=== PATIENT | female | born 1935 | race Two or more races ===

== ENCOUNTER 2017-04-29 04:01 | Emergency (ER) | payer MEDICARE, OTHER ==
[2017-04-29] MEDS ORDERED: METOPROLOL TARTRATE PF/INJ 5 MG/5 ML SDV IV ONE ×2 (04:25→05:59)
--- NOTE | 2017-04-29 04:29 | ER Document Report ---
ED General - General Chief Complaint: HYPERTENSION Stated Complaint: BLOOD PRESSURE PROBLEMS Time Seen by Provider: 04/29/17 04:14 Notes: Patient is an 81-year-old female comes emergency department for chief complaint of a burning discomfort in her right buttock area that started tonight after she went to bed and kept her from going to sleep, she complained about this and then family members checked her blood pressure and found it was elevated, subsequently they brought her to the emergency department. She has been out of her metoprolol tartrate 25 mg twice a day for the past 2 days because nothing came in the mail yet, she is visiting family from [place] and is planning to stay. She also recently had her Synthroid increased back home. Patient denies any dizziness, chest pain, shortness of breath, abdominal pain, numbness , fever, nausea or vomiting. She also takes carbamazepine for trigeminal neuralgia. TRAVEL OUTSIDE OF THE [place] IN LAST 30 DAYS: No Past Medical History - General Information source: Patient, Relative - Social History Smoking Status: Never Smoker Frequency of alcohol use: None Drug Abuse: None Lives with: Family Family History: Reviewed & Not Pertinent Patient has suicidal ideation: No Patient has homicidal ideation: No - Past Medical History Cardiac Medical History: Reports: Hx Hypertension Endocrine Medical History: Reports: Hx Hypothyroidism Renal/ Medical History: Denies: Hx Peritoneal Dialysis - Immunizations Immunizations up to date: Yes Hx Diphtheria, Pertussis, Tetanus Vaccination: Yes Review of Systems - Review of Systems Constitutional: No symptoms reported EENT: No symptoms reported Cardiovascular: See HPI Respiratory: No symptoms reported Gastrointestinal: No symptoms reported Genitourinary: No symptoms reported Female Genitourinary: No symptoms reported Musculoskeletal: See HPI Skin: No symptoms reported Hematologic/Lymphatic: No symptoms reported Neurological/Psychological: No symptoms reported Physical Exam - Vital signs Vitals: Resp Pulse Ox 21 H 99 04/29/17 04:27 04/29/17 04:27 Interpretation: Normal - General General appearance: Alert, Anxious In distress: None - HEENT Head: Normocephalic, Atraumatic Eyes: Normal Pupils: PERRL - Respiratory Respiratory status: No respiratory distress Chest status: Nontender Breath sounds: Normal Chest palpation: Normal - Cardiovascular Rhythm: Regular, Tachycardia. No: Irregularly irregular Heart sounds: Normal auscultation, S1 appreciated, S2 appreciated Murmur: No - Abdominal Inspection: Normal Distension: No distension Bowel sounds: Normal Tenderness: Nontender. No: Tender Organomegaly: No organomegaly - Back Back: Tender - There is minimal tenderness noted over the right gluteal musculature, normal back exam otherwise, no saddle anesthesia, moves all extremities and full range of motion, normal distal neurovascular exam - Extremities General upper extremity: Normal inspection, Nontender, Normal color, Normal ROM , Normal temperature General lower extremity: Normal inspection, Nontender, Normal color, Normal ROM , Normal temperature, Normal weight bearing. No: Jennifer's sign - Neurological Neuro grossly intact: Yes Cognition: Normal Orientation: AAOx4 Eduardo Coma Scale Eye Opening: Spontaneous Mcgregor Coma Scale Verbal: Oriented Eduardo Coma Scale Motor: Obeys Commands Mcgregor Coma Scale Total: 15 Speech: Normal Motor strength normal: LUE, RUE, LLE, RLE Sensory: Normal - Psychological Associated symptoms: Normal affect, Normal mood - Skin Skin Temperature: Warm Skin Moisture: Dry Skin Color: Normal Course - Re-evaluation Re-evalutation: EKG questionable for artifact, appears to be sinus tachycardia on the monitor, questionable on the EKG. CBC, chemistry, urinalysis unremarkable. Troponin is indeterminate at 0.047, patient has denied any chest pain, shortness of breath, dizziness, suspect because of her age and elevated heart rate and this is somewhat elevated. Patient with mild tenderness of the right gluteal musculature, after this was specifically noted patient and family requested no further attention be paid to this, they state patient has been sleeping on a blood mattress, they will accommodate her better, focus will be on her blood pressure medication and heart rate. Patient is anxious in appearance, family members confirm that she always gets very anxious when she is being evaluated in a medical setting. Patient was given 0.5 mg of Ativan because of this along with beginning her beta blockade again. Initially given very small dose 2.5 mg IV, confirmed with Dr. Hernández, then given her small home dose and finally an additional 5 mg IV of metoprolol. After all treatments heart rate normalized, blood pressure improved, patient calm and relaxed. Heart rate is no sinus rhythm in the 80s. Patient and family requesting to leave. Discussed with Dr. Hernández. Providing with temporary refill of her medication, primary care follow-up, discussed return precautions in detail, patient and family state understanding and agreement. - Vital Signs Vital signs: Temp Pulse Resp BP Pulse Ox 7 L 155/88 H 97 04/29/17 06:46 04/29/17 06:46 04/29/17 06:46 - Laboratory Result Diagrams: 04/29/17 04:34 04/29/17 04:34 Laboratory results interpreted by me: 04/29/17 04/29/17 04/29/17 04:34 04:34 04:34 MCH 33.8 H Est GFR (Non-Af Amer) 58 L Glucose 122 H TSH 7.52 H Free T3 pg/mL 2.42 L Urine Blood 04/29/17 05:30 MCH Est GFR (Non-Af Amer) Glucose TSH Free T3 pg/mL Urine Blood MODERATE H Discharge - Discharge Clinical Impression: Rapid heart rate Condition: Stable Disposition: HOME, SELF-CARE Additional Instructions: Please fill and take her prescribed metoprolol. Follow-up closely with the primary care referral given for additional management. Return to the emergency department for any concerning symptoms including chest pain, dizziness, difficulty breathing, or any other concerning symptoms. Prescriptions: Metoprolol Tartrate 25 mg PO BID #60 tablet Forms: Treatment of Relative/Child Referrals: ISAÍAS MEDLEY MD [ACTIVE STAFF] - 05/02/17 CHEKO GONZÁLES MD [ACTIVE STAFF] - 05/02/17
[2017-04-29 04:56] LABS: ABSOLUTE EOSINOPHILS # (AUTO) 0.1 10^3/uL (0.0-0.6); ABSOLUTE LYMPHOCYTES (AUTO) 1.3 10^3/uL (0.5-4.7); ABSOLUTE MONOCYTES (AUTO) 0.6 10^3/uL (0.1-1.4); ABSOLUTE NEUT (AUTO) 4.5 10^3/uL (1.7-8.2); BASOPHILS % (AUTO) 0.5 % (0-2); EOSINOPHILS % (AUTO) 1.9 % (0-6); HEMATOCRIT 39.5 % (36.0-47.0); HGB HCT DIFFERENCE 2.5; LYMPHOCYTES % (AUTO) 19.6 % (13-45); MEAN CORPUSCULAR HEMOGLOBIN 33.8 pg (27.0-33.4); MEAN CORPUSCULAR HGB CONC 35.4 g/dL (32.0-36.0); MEAN CORPUSCULAR VOLUME 96 fl (80-97); MONOCYTES % (AUTO) 9.6 % (3-13); RED BLOOD COUNT 4.13 10^6/uL (3.72-5.28); RED CELL DISTRIBUTION WIDTH 13.5 % (11.5-14.0); SEGMENTED NEUTROPHILS % (AUTO) 68.4 % (42-78); WHITE BLOOD COUNT 6.6 10^3/uL (4.0-10.5)
[2017-04-29 05:00] LABS: ALANINE AMINOTRANSFERASE 34 U/L (9-52); ALBUMIN 3.9 g/dL (3.5-5.0); ALKALINE PHOSPHATASE 100 U/L (38-126); ANION GAP 14 (5-19); ASPARTATE AMINO TRANSFERASE 21 U/L (14-36); BILIRUBIN,DIRECT 0.3 mg/dL (0.0-0.4); BILIRUBIN,TOTAL 0.6 mg/dL (0.2-1.3); BLOOD UREA NITROGEN 19 mg/dL (7-20); CALCIUM 9.6 mg/dL (8.4-10.2); CARBON DIOXIDE 24 mmol/L (22-30); CHLORIDE 104 mmol/L (98-107); CREATINE KINASE 55 U/L (30-135); CREATININE RESULT 0.93 mg/dL (0.52-1.25); GLUCOSE 122 mg/dL (75-110); POTASSIUM 4.2 mmol/L (3.6-5.0); TOTAL PROTEIN 6.6 g/dL (6.3-8.2)
[2017-04-29] MEDS ORDERED: METOPROLOL TARTRATE 25 MG TABLET PO ONE (05:05)
[2017-04-29 05:14] LABS: CREATINE KINASE MB 0.76 ng/mL (<4.55)
[2017-04-29 05:16] LABS: TROPONIN I 0.041 ng/mL
[2017-04-29 05:17] LABS: FREE T3 2.42 pg/mL (2.77-5.27)
[2017-04-29 05:30] LABS: THYROID STIMULATING HORMONE 7.52 uIU/mL (0.47-4.68)
[2017-04-29] MEDS ORDERED: LORAZEPAM 0.5 MG TABLET PO ONE (05:30)
[2017-04-29 05:56] LABS: APPEARANCE,URINE CLEAR; BILIRUBIN,URINE NEGATIVE (NEGATIVE); GLUCOSE, URINE NEGATIVE (NEGATIVE); KETONES,URINE NEGATIVE (NEGATIVE); LEUKOCYTE ESTERASE,URINE NEGATIVE (NEGATIVE); NITRITE,URINE NEGATIVE (NEGATIVE); PROTEIN,URINE NEGATIVE (NEGATIVE); URINE SPECIFIC GRAVITY 1.005; UROBILINOGEN,URINE NEGATIVE mg/dL (<2.0)
[2017-04-29 06:47] VITALS: BP 155/88
--- NOTE | 2017-04-29 12:23 | EKG REPORT ---
SEVERITY:- ABNORMAL ECG - A-FLUTTER W/ PREDOM 2:1 AV BLOCK, A-RATE 283 REPOLARIZATION ABNORMALITY, PROB RATE RELATED : Confirmed by: Liberty Nguyen MD 29-Apr-2017 12:22:50
== END 2017-04-29 07:10 | disposition home or self-care (01) ==
LOC: ER 04:01
DX: R00.0 Tachycardia, unspecified (principal); R29.898 Other symptoms and signs involving the musculoskeletal system; G50.0 Trigeminal neuralgia; I10 Essential (primary) hypertension; T44.7X6A Underdosing of beta-adrenoreceptor antagonists, initial encounter; Z91.128 Patient's intentional underdosing of medication regimen for other reason; Z91.14 Patient's other noncompliance with medication regimen; Z79.899 Other long term (current) drug therapy
CPT/HCPCS: 93005; 96376; 99285; 96374; 36415; 84439; 82553; 82550; 84443; 85025; 80053; 81001; 84484; 84481; 93010; J3490; A9270 ×2

== ENCOUNTER 2017-04-30 00:40 | Emergency (ER) | payer MEDICARE, OTHER ==
[2017-04-30] MEDS ORDERED: HYDROCHLOROTHIAZIDE 25 MG TABLET PO ONE (03:26)
[2017-04-30] MEDS ORDERED: ACETAMINOPHEN 325 MG TABLET PO ONE (03:26)
[2017-04-30 04:56] LABS: APPEARANCE,URINE SLIGHTLY-CLOUDY; BILIRUBIN,URINE NEGATIVE (NEGATIVE); GLUCOSE, URINE NEGATIVE (NEGATIVE); KETONES,URINE NEGATIVE (NEGATIVE); LEUKOCYTE ESTERASE,URINE MODERATE (NEGATIVE); NITRITE,URINE NEGATIVE (NEGATIVE); PROTEIN,URINE 30 mg/dL (NEGATIVE); URINE SPECIFIC GRAVITY 1.009; UROBILINOGEN,URINE NEGATIVE mg/dL (<2.0)
[2017-04-30] MEDS ORDERED: LIDOCAINE 1% INJ-PF (10 MG/ML) 30 ML SDV INFIL ONE (05:16)
[2017-04-30] MEDS ORDERED: CEFTRIAXONE INJ 1000 MG VIAL IM ONE (05:16)
--- NOTE | 2017-04-30 05:18 | ER Document Report ---
ED General - General Chief Complaint: High Blood Pressure Stated Complaint: POSSIBLE BLOOD PRESSURE ISSUE Time Seen by Provider: 04/30/17 03:10 Notes: Patient is a pleasant 81-year-old female from [place] who presents with her son. She presents with complaint of high blood pressure and also pain of the right lower back into the right gluteal region as well as frequent urination. She was seen here yesterday and had CBC CMP as well as UA performed. These were normal. At that time she was also out of her metoprolol and was tachycardic. She was placed back on her metoprolol and her heart rate has been much improved. Over last 24 she is continue have pain in the right lower back and her blood pressure was starting to run high again and therefore they came to the ER. No fevers at home. No vomiting. No diarrhea. She has had some decreased appetite. No medical allergies. No history of coronary disease. She does have a history of a surgically repaired ascending thoracic aortic aneurysm. She denies any chest pain or thoracic back pain. No abdominal pain. No other complaints at this time. TRAVEL OUTSIDE OF THE [place] IN LAST 30 DAYS: No Past Medical History - Social History Smoking Status: Never Smoker Frequency of alcohol use: None Drug Abuse: None Family History: Reviewed & Not Pertinent Patient has suicidal ideation: No Patient has homicidal ideation: No - Past Medical History Cardiac Medical History: Reports: Hx Hypertension Endocrine Medical History: Reports: Hx Hypothyroidism Renal/ Medical History: Denies: Hx Peritoneal Dialysis Surgical Hx: Negative - Immunizations Immunizations up to date: Yes Hx Diphtheria, Pertussis, Tetanus Vaccination: Yes Review of Systems - Review of Systems Notes: My Normal Review Basic REVIEW OF SYSTEMS: CONSTITUTIONAL : Denies fever, chills, or sweats. Denies recent illness. EENT: Denies eye, ear, throat, or mouth pain or symptoms. Denies nasal or sinus congestion. CARDIOVASCULAR: Denies chest pain. RESPIRATORY: Denies cough, cold, or chest congestion. Denies shortness of breath, difficulty breathing, or wheezing. GASTROINTESTINAL: Denies abdominal pain. Denies nausea, vomiting, or diarrhea. Denies constipation. Last BM: GENITOURINARY: Frequent urination. MUSCULOSKELETAL: Some right-sided low back pain SKIN: Denies rash or skin lesions. NEUROLOGICAL: Denies altered mental status or loss of consciousness. Denies headache. Denies weakness or paralysis or loss of use of either side. Denies problems with gait or speech. Denies sensory or motor loss. ALL OTHER SYSTEMS REVIEWED AND NEGATIVE. Physical Exam - Vital signs Vitals: Temp Pulse Resp BP Pulse Ox 98.8 F 81 16 168/113 H 98 04/30/17 01:12 04/30/17 01:12 04/30/17 01:12 04/30/17 01:12 04/30/17 01:12 - Notes Notes: General Appearance: Well nourished, alert, cooperative, no acute distress, mild obvious discomfort. Well-appearing Vitals: reviewed, See vital signs table. Head: no swelling or tenderness to the head Eyes: PERRL, EOMI, Conjuctiva clear Mouth: No decreasd moisture Neck: Supple, no neck tenderness, No thyromegaly Lungs: No wheezing, No rales, No rhonci, No accessory muscle use, good air exchange bilaterally. Heart: Normal rate, Regular rythm, No murmur, no rub Abdomen: Normal BS, soft, No rigidity, No abdominal tenderness, No guarding, no rebound, no abdominal masses, no organomegaly Back: Mild tenderness to palpation over the right lower back and into the right gluteal region. Extremities: strength 5/5 in all extremities, good pulses in all extremities, no swelling or tenderness in the extremities, no edema. Skin: warm, dry, appropriate color, no rash Neuro: speech clear, oriented x 3, normal affect, responds appropriately to questions. Cranial nerves II through XII are intact. Distal sensation intact. Patient moves all 4 extremities without difficulty. Course - Re-evaluation Re-evalutation: 04/30/17 06:27 I did do repeat urinalysis even though yesterday's was normal being that the patient has been having any frequency with the low back pain. It was positive. I will will give her a dose of Rocephin. I will also place her on Keflex. Patient does have some hypertension. I will add hydrochlorothiazide to her regimen. I did speak with her son at length. The patient's son is very fluent both Bruneian and Hebrew. The patient herself only speaks Bruneian. Son will was able to fully interpret and give me a very accurate story. At this time he said there prefer to follow-up with Dr. Doty. They have already contacted his office and have started to arrange follow-up. I encouraged him to return to the ER immediately if she has any fevers, worsening pain, vomiting, or she feels unwell. Patient and patient's son agree with plan and she will be discharged home. Dictation of this chart was performed using voice recognition software; therefore, there may be some unintended grammatical errors. - Vital Signs Vital signs: Temp Pulse Resp BP Pulse Ox 98.8 F 68 18 169/81 H 97 04/30/17 01:12 04/30/17 05:56 04/30/17 05:56 04/30/17 05:56 04/30/17 05:56 - Laboratory Laboratory results interpreted by me: 04/30/17 02:06 Urine Protein 30 H Urine Blood MODERATE H Ur Leukocyte Esterase MODERATE H Discharge - Discharge Clinical Impression: UTI (urinary tract infection) Qualifiers: Urinary tract infection type: site unspecified Hematuria presence: without hematuria Qualified Code(s): N39.0 - Urinary tract infection, site not specified Hypertension Qualifiers: Hypertension type: unspecified Qualified Code(s): I10 - Essential (primary) hypertension Back pain Qualifiers: Back pain location: low back pain Chronicity: acute Back pain laterality: right Sciatica presence: without sciatica Qualified Code(s): M54.5 - Low back pain Condition: Good Disposition: HOME, SELF-CARE Additional Instructions: Your urinalysis showed evidence of infection suggesting a UTI. I have prescribed an antibiotic called Keflex to help fight this infection. It is very important that you return to the ER immediately if you develop fevers, vomiting , or worsening pain. please take Tylenol 500mg every 4 hours for your back pain. Please take the new high blood pressure medication (Hydrochlorothiazide) to help keep your blood pressure under control. Please follow up with Dr. Quiroz early this coming week. Prescriptions: Cephalexin Monohydrate [Keflex 500 mg Capsule] 500 mg PO Q6H 7 Days capsule Hydrochlorothiazide 25 mg PO DAILY #20 tablet Forms: Return to Work
[2017-04-30 06:00] VITALS: BP 169/81
== END 2017-04-30 05:59 | disposition home or self-care (01) ==
LOC: ER 00:40
DX: N39.0 Urinary tract infection, site not specified (principal); I10 Essential (primary) hypertension; M54.5 Low back pain; R35.0 Frequency of micturition; R00.0 Tachycardia, unspecified; R63.0 Anorexia; Z79.899 Other long term (current) drug therapy
CPT/HCPCS: 99283; 96372; 81001; A9270; J3490; J0696

== ENCOUNTER 2017-05-10 11:22 | Emergency (ER) | payer MEDICARE, OTHER ==
[2017-05-10 11:31] VITALS: BP 174/88
[2017-05-10] MEDS ORDERED: TRAMADOL HCL 50 MG TABLET PO ONE (12:00)
[2017-05-10] MEDS ORDERED: ONDANSETRON 4 MG TAB.RAPDIS PO ONE (12:00)
[2017-05-10 12:26] LABS: ABSOLUTE LYMPHOCYTES (AUTO) 1.3 10^3/uL (0.5-4.7); ABSOLUTE MONOCYTES (AUTO) 1.4 10^3/uL (0.1-1.4); ABSOLUTE NEUT (AUTO) 8.8 10^3/uL (1.7-8.2); BASOPHILS % (AUTO) 0.3 % (0-2); EOSINOPHILS % (AUTO) 0.1 % (0-6); HEMATOCRIT 43.9 % (36.0-47.0); HEMOGLOBIN 15.5 g/dL (12.0-15.5); HGB HCT DIFFERENCE 2.6; LYMPHOCYTES % (AUTO) 11.2 % (13-45); MEAN CORPUSCULAR HEMOGLOBIN 33.6 pg (27.0-33.4); MEAN CORPUSCULAR HGB CONC 35.2 g/dL (32.0-36.0); MEAN CORPUSCULAR VOLUME 95 fl (80-97); MONOCYTES % (AUTO) 12.2 % (3-13); RED BLOOD COUNT 4.61 10^6/uL (3.72-5.28); RED CELL DISTRIBUTION WIDTH 13.5 % (11.5-14.0); SEGMENTED NEUTROPHILS % (AUTO) 76.2 % (42-78); WHITE BLOOD COUNT 11.5 10^3/uL (4.0-10.5)
[2017-05-10 12:47] LABS: ALANINE AMINOTRANSFERASE 45 U/L (9-52); ALBUMIN 4.2 g/dL (3.5-5.0); ALKALINE PHOSPHATASE 80 U/L (38-126); ANION GAP 13 (5-19); ASPARTATE AMINO TRANSFERASE 21 U/L (14-36); BILIRUBIN,DIRECT 0.4 mg/dL (0.0-0.4); BILIRUBIN,TOTAL 0.9 mg/dL (0.2-1.3); BLOOD UREA NITROGEN 17 mg/dL (7-20); CALCIUM 9.5 mg/dL (8.4-10.2); CARBON DIOXIDE 28 mmol/L (22-30); CHLORIDE 88 mmol/L (98-107); CREATININE RESULT 0.78 mg/dL (0.52-1.25); GLUCOSE 135 mg/dL (75-110); POTASSIUM 4.4 mmol/L (3.6-5.0); SODIUM 129.2 mmol/L (137-145); TOTAL PROTEIN 6.8 g/dL (6.3-8.2)
[2017-05-10 12:50] LABS: APPEARANCE,URINE CLEAR; BILIRUBIN,URINE NEGATIVE (NEGATIVE); GLUCOSE, URINE NEGATIVE (NEGATIVE); KETONES,URINE NEGATIVE (NEGATIVE); LEUKOCYTE ESTERASE,URINE TRACE (NEGATIVE); NITRITE,URINE NEGATIVE (NEGATIVE); PROTEIN,URINE 100 mg/dL (NEGATIVE); URINE SPECIFIC GRAVITY 1.012; UROBILINOGEN,URINE NEGATIVE mg/dL (<2.0)
--- NOTE | 2017-05-10 13:27 | ER Document Report ---
ED General - General Chief Complaint: Flank Pain Stated Complaint: BLOOD PRESSURE ISSUES, VOMITING Time Seen by Provider: 05/10/17 12:00 Mode of Arrival: Ambulatory Information source: Patient Notes: Patient is brought in by son. Patient recently diagnosed with a urinary tract infection as well as shingles. She is having decreased appetite some nausea and pain in the right flank where the rashes. Patient's blood pressure is also elevated this morning and the son states this made him nervous. The pain is severe and constant. It is burning. It is worse when touched and better if left alone. It does radiate about the right side of her body. TRAVEL OUTSIDE OF THE [place] IN LAST 30 DAYS: No - Related Data Allergies/Adverse Reactions: No Known Allergies Allergy (Unverified 05/10/17 11:31) Past Medical History - General Information source: Patient, Relative - Social History Smoking Status: Never Smoker Chew tobacco use (# tins/day): No Frequency of alcohol use: None Family History: Reviewed & Not Pertinent Patient has suicidal ideation: No Patient has homicidal ideation: No - Past Medical History Cardiac Medical History: Reports: Hx Hypertension Endocrine Medical History: Reports: Hx Hypothyroidism Renal/ Medical History: Denies: Hx Peritoneal Dialysis - Immunizations Immunizations up to date: Yes Hx Diphtheria, Pertussis, Tetanus Vaccination: Yes Review of Systems - Review of Systems Constitutional: denies: Chills, Fever Cardiovascular: denies: Chest pain, Palpitations Respiratory: denies: Cough, Short of breath Gastrointestinal: Abdominal pain, Vomiting -: Yes All other systems reviewed and negative Physical Exam - Vital signs Vitals: Temp Pulse Resp BP Pulse Ox 97.8 F 63 16 174/88 H 99 05/10/17 11:29 05/10/17 11:29 05/10/17 11:29 05/10/17 11:29 05/10/17 11:29 Interpretation: Hypertensive - General General appearance: Appears well, Alert - HEENT Head: Normocephalic, Atraumatic Eyes: Normal Pupils: PERRL - Respiratory Respiratory status: No respiratory distress Chest status: Nontender Breath sounds: Normal Chest palpation: Normal - Cardiovascular Rhythm: Regular Heart sounds: Normal auscultation Murmur: No - Abdominal Inspection: Normal Distension: No distension Bowel sounds: Normal Tenderness: Nontender Organomegaly: No organomegaly - Back Back: Normal, Nontender - Extremities General upper extremity: Normal inspection, Nontender, Normal color, Normal ROM , Normal temperature General lower extremity: Normal inspection, Nontender, Normal color, Normal ROM , Normal temperature, Normal weight bearing. No: Jennifer's sign - Neurological Neuro grossly intact: Yes Cognition: Normal Orientation: AAOx4 Eduardo Coma Scale Eye Opening: Spontaneous Eduardo Coma Scale Verbal: Oriented Harper Coma Scale Motor: Obeys Commands Harper Coma Scale Total: 15 Speech: Normal Motor strength normal: LUE, RUE, LLE, RLE Sensory: Normal - Psychological Associated symptoms: Normal affect, Normal mood - Skin Skin Temperature: Warm Skin Moisture: Dry Skin Color: Other - Has a erythematous mildly tender rash on the right flank. Rashes consistent with zoster. Course - Re-evaluation Re-evalutation: 05/10/17 13:24 Patient is smiling and pleasant. She appears in no distress on recheck. Patient and family educated about the fact that her sodium is low. Patient did recently start hydrochlorothiazide. She has been instructed to stop this medication and contact her primary care doctor immediately. She is also been instructed to increase her fluid intake. Patient has an equivocal urine. However since she recently finished antibiotic and this is a clean-catch at this time I do not believe that further treatment is warranted. I have instructed patient and family that the sodium needs to be rechecked by the end of the week either by her primary care physician or here in the emergency department. - Vital Signs Vital signs: Temp Pulse Resp BP Pulse Ox 97.8 F 63 16 174/88 H 99 05/10/17 11:29 05/10/17 11:29 05/10/17 11:29 05/10/17 11:29 05/10/17 11:29 - Laboratory Result Diagrams: 05/10/17 12:07 05/10/17 12:07 Laboratory results interpreted by me: 05/10/17 05/10/17 05/10/17 12:07 12:07 12:11 WBC 11.5 H MCH 33.6 H Lymphocytes % 11.2 L Absolute Neutrophils 8.8 H Sodium 129.2 L Chloride 88 L Glucose 135 H Urine Protein 100 H Urine Blood MODERATE H Ur Leukocyte Esterase TRACE H Discharge - Discharge Clinical Impression: Hyponatremia Zoster Qualifiers: Herpes zoster complications: without complications Qualified Code(s): B02.9 - Zoster without complications Condition: Stable Disposition: HOME, SELF-CARE Instructions: Hyponatremia ([facility]), Shingles ([facility]) Additional Instructions: Please stop taking hydrochlorothiazide. Please increase your fluid intake. Please have your sodium level rechecked in 2-3 days by her primary care physician or here at the emergency department. Prescriptions: Ondansetron [Zofran Odt 4 mg Tablet] 1 tab PO Q6 #15 tab.rapdis Tramadol HCl [Ultram 50 mg Tablet] 50 mg PO Q6 #15 tab
== END 2017-05-10 13:40 | disposition home or self-care (01) ==
LOC: ER 11:22
DX: E87.1 Hypo-osmolality and hyponatremia (principal); B02.9 Zoster without complications; R10.9 Unspecified abdominal pain; R11.2 Nausea with vomiting, unspecified; I10 Essential (primary) hypertension; E03.9 Hypothyroidism, unspecified
CPT/HCPCS: 36415; 80053; 81001; 85025; 99283